=== PATIENT | male | born 1980 | race Caucasian/White ===

== ENCOUNTER → 2016-12-27 | Outpatient (CLI) | payer BC ==
[~2016-12-27] MED LIST: ASTN; ATV/1 PO; LORA-741 PO; MULT-506 PO
--- NOTE | 2016-12-27 09:36 | DIAGNOSTIC IMAGING REPORT ---
FUSION CT SINUSES W/O HISTORY: J32.9 Chronic sinusitis PATIENT IS STATUS POST BILATERAL MAXILLAR TECHNIQUE: Multiaxial CT images of the sinuses were performed and reformatted in the coronal plane without contrast. Fusion CT sinus protocol was also obtained. COMPARISON STUDY: Sinus CT 07/29/2016. FINDINGS: Mild mucosal thickening within the floor of the right frontal sinus and right frontoethmoidal recess. The left frontal sinus and sphenoid sinuses are clear. Partial opacification of the right ethmoid air cells. Small left-sided faiza bullosa. Asymmetric enlargement within the right inferior turbinate posteriorly. This slightly extends into the choana and measures 1.9 cm in thickness. This raises the possibility of a polyp. There may be a few small additional polyps along the bilateral inferior nasal turbinates. Moderate mucosal thickening within the right maxillary sinus and mild mucosal thickening within the left maxillary sinus. This has progressed. The mastoid air cells are clear. Left nasal septal deviation. There are bilateral maxillary antrostomies with partial middle turbinectomies. No fluid levels within the paranasal sinuses. Partially pneumatized anterior clinoids. The lamina papyracea and overall floors are intact. The visualized brain parenchyma and orbits are unremarkable. IMPRESSION: 1. Progression of the mild to moderate mucosal thickening within the paranasal sinuses consistent with a chronic sinusitis. No fluid levels identified. 2. Asymmetric nodular enlargement of the right inferior nasal turbinate posteriorly. This measures 1.9 cm in thickness. This could represent a polyp. Direct visualization is recommended. 3. Postoperative changes as described above. 4. Left nasal septal deviation. Electronically signed by: Nasir Chowdary M.D. 12/27/2016 9:33 AM Dictated Date/Time: 12/27/2016 9:26 AM
== END | disposition home or self-care (01) ==
LOC: C.CTS 08:54
DX: J32.9 Chronic sinusitis, unspecified (principal); J34.2 Deviated nasal septum

== ENCOUNTER → 2017-01-27 | Outpatient (CLI) | payer BC ==
[~2017-01-27] MED LIST changes: -LORA-741 PO
[2017-01-27 14:26] LABS: BASO % 0.4 %; BASO ABS # 0.02 K/uL (0-0.2); COMPLETE YES; EOS % 5.4 %; HEMATOCRIT 47.4 % (42-52); IG% 0.4 %; LYMPH % 33.5 %; LYMPH ABS # 1.81 K/uL (1.2-3.4); MEAN CELL VOLUME 88.1 fL (80-100); MEAN CORPUSCULAR HEMOGLOBIN 31.4 pg (25-34); MEAN CORPUSCULAR HGB CONC 35.7 g/dl (32-36); MEAN PLATELET VOLUME 10.1 fL (7.4-10.4); MONO % 8.3 %; PLATELET COUNT 203 K/uL (130-400); RED BLOOD COUNT 5.38 M/uL (4.7-6.1); WHITE BLOOD COUNT 5.41 K/uL (4.8-10.8)
[2017-01-27 14:32] LABS: INR 0.9 (0.9-1.1); PROTHROMBIN TIME (PATIENT) 10.1 SECONDS (9.0-12.0)
[2017-01-27 15:13] LABS: POTASSIUM 3.8 mmol/L (3.5-5.1)
== END | disposition home or self-care (01) ==
LOC: C.LAB 13:12
DX: Z01.818 Encounter for other preprocedural examination (principal)

== ENCOUNTER → 2017-02-07 | Day surgery (SDC) | payer BC ==
[2017-01-22 14:07] VITALS: Ht 182.9 cm; Wt 79.5 kg
[~2017-02-07] VITALS: Ht 182.9 cm; Wt 79.5 kg
[~2017-02-07] MED LIST changes: +ATROPINE SULFATE 0.1 MG/ML 5ML SYR IV PRN; +CEFAZOLIN 2000 MG/60 ML D5W IV SCH; +DEXAMETHASONE SOD INJ 4 MG/ML VIAL ONE; +EpINEphrine INJ 1MG/ML AMP 1 MG/ML AMP ONE; +FENTANYL CITRATE INJ 50 MCG/1 ML 2 ML VIAL IV PRN; +FENTANYL CITRATE INJ 50 MCG/1 ML 2 ML VIAL ONE; +HYDROCODONE/ACETAMOPHEN 5/325MG TAB PO PRN; +LABETALOL HCL IV 5 MG/ML 20ML IV PRN; +LACTATED RINGER'S 1000ML 1,000 ML IV SCH; +LIDOCAINE 4% MPF SOAK 5 ML = 1 DOSE TOP ONE; +LIDOCAINE HCL 2% 2 ML VIAL (20MG/ML) ONE; +LIDOCAINE/EPINEPHRINE 1% INJ 50 ML VIAL ONE; +MIDAZOLAM HCL 1 MG/ML 2ML VIAL ONE; +ONDANSETRON INJ 2 MG/ML 2 ML VIAL IV PRN; +ONDANSETRON INJ 2 MG/ML 2 ML VIAL ONE; +OXYMETAZOLINE HCL 0.05% NA SPR 15 ML BTL PRN; +OXYMETAZOLINE HCL 0.05% NA SPR 15 ML BTL SCH; +PROPOFOL IV EMULSION 10 MG/ML 20 ML VIAL IV ONE; +SUCCINYLCHOLINE CHLORIDE 20 MG/ML 10 ML VIAL IV ONE
--- NOTE | 2017-02-07 12:50 | History & Physical Bridge - [place] ---
H&P Re-Evaluation Bridge Note: I have examined the patient, reviewed the History & Physical and in the interval since the performance of the History & Physical I have noted the following changes of clinical significance: No changes noted
--- NOTE | 2017-02-07 13:20 | [facility] Operative Report ---
Operative Report Operative Date Feb 07, 2017. Pre-Operative Diagnosis Right Nasal Polyp Post-Operative Diagnosis Same Procedure(s) Performed Right Endoscopic Sinus Surgery Wtih Right Polypectomy Surgeon Dr. Oliva Patient Placement Coordinator Surgeon(s) None Estimated Blood Loss 2ML Findings LARGE POLYPOID MASS EMANATING FROM THE POSTERIOR ASPECT OF THE RIGHT INFERIOR TURBINATE Specimens A.) Right Nasal Polyp I attest to the content of the Intraoperative Record and any orders documented therein. Any exceptions are noted below.
--- NOTE | 2017-02-07 13:23 | Discharge Instructions ---
Discharge Instructions Date of Service Feb 07, 2017. Admission Reason for Admission: Nasal Polyps Discharge Discharge Diagnosis / Problem: SAME Discharge Goals Goal(s): Therapeutic intervention Activity Recommendations Activity Limitations: as noted below NO NOSE BLOWING FOR 2 WEEKS; LIGHT ACTIVITY FOR 2 WEEKS; NO DRIVING WHILE ON NORCO . Current Hospital Diet Patient's current hospital diet: Discharge Diet Recommended Diet: Regular Diet Procedures Procedures Performed: Right Endoscopic Sinus Surgery Wtih Right Polypectomy Pending Studies Studies pending at discharge: no Medical Emergencies . Who to Call and When: Medical Emergencies: If at any time you feel your situation is an emergency, please call 911 immediately. . Non-Emergent Contact Non-Emergency issues call your: Surgeon . . "Provider Documentation" section prepared by Roly Oliva. . VTE Core Measure Inpt VTE Proph given/why not?: SCD's
[2017-02-07 14:11] VITALS: TEMP 36.6
--- NOTE | 2017-02-07 14:22 | Anesthesia Progress Nt - [facility] ---
Anesthesia Post Op Note Date & Time Feb 07, 2017 at 14:22 Vital Signs Pain Intensity: 0 Vital Signs Past 12 Hours Date Time Temp Pulse Resp B/P (MAP) Pulse Ox O2 Delivery O2 Flow Rate FiO2 02/07/17 14:03 36.6 66 18 129/85 97 Room Air 02/07/17 14:01 129/85 02/07/17 14:00 71 16 97 02/07/17 14:00 71 16 02/07/17 13:56 139/87 02/07/17 13:55 69 16 02/07/17 13:55 71 16 97 02/07/17 13:51 123/94 02/07/17 13:50 75 13 02/07/17 13:50 75 13 99 02/07/17 13:46 114/84 02/07/17 13:45 76 19 02/07/17 13:45 76 19 99 02/07/17 13:41 106/77 02/07/17 13:40 36.9 74 12 106/77 98 Humidified Oxygen 6 02/07/17 11:17 36.7 77 20 115/77 (90) 97 Room Air Notes Mental Status: alert / awake / arousable, participated in evaluation Pt Amnestic to Procedure: Yes Nausea / Vomiting: adequately controlled Pain: adequately controlled Airway Patency, RR, SpO2: stable & adequate BP & HR: stable & adequate Hydration State: stable & adequate Anesthetic Complications: no major complications apparent
[2017-02-07 14:35] VITALS: BP 131/85; PULSE 64; O2SAT 100
--- NOTE | 2017-02-07 19:48 | OPERATIVE REPORT ---
DATE OF OPERATION: 02/07/2017 PREOPERATIVE DIAGNOSIS: Right nasal polyp. POSTOPERATIVE DIAGNOSIS: Right nasal polyp. PROCEDURE: Endoscopic right nasal polypectomy. SURGEON: Roly Oliva MD ANESTHESIA: General endotracheal. ESTIMATED BLOOD LOSS: 2 mL. FINDINGS: 1. Large polyp emanating from the posterior aspect of the right inferior turbinate causing obstruction of the choana on the right hand side and nasopharynx. SPECIMENS: None. COMPLICATIONS: None. INDICATIONS FOR THE PROCEDURE: The patient is a very pleasant 36-year-old male who recently underwent bilateral endoscopic sinus surgery, septoplasty, and bilateral inferior turbinate reduction, who several months after surgery complained of continued/recurrent right nasal airway obstruction. A CT scan of the sinuses showed some abnormalities, but most significant of which was a likely polyp emanating from the posterior aspect of the right inferior turbinate and completely obstructing the right choana and nasopharynx with polypoid tissue. He presents for the above-mentioned procedure on an outpatient elective basis. DESCRIPTION OF PROCEDURE: After informed consent had been obtained from the patient, the patient was wheeled to the operating room and placed on the operating table in a supine position. Monitors were placed. After induction of general endotracheal anesthesia, the patient was prepped in usual fashion for endoscopic sinus surgery. Lidocaine and epinephrine pledgets were placed into the right nasal cavity and pressure applied. After allowing adequate time for vasoconstriction and decongestion, the pledgets were removed and 3 mL of 1% lidocaine with 1:100,000 epinephrine was used to inject the right inferior turbinate posteriorly where there was a large polypoid mass emanating from the posterior aspect of it. After allowing adequate time for vasoconstriction, powered instrumentation was used to remove the polyp in its entirety, which resulted in a much larger nasal airway on the right hand side posteriorly. Photodocumentation was taken prior to the endoscopic polypectomy and afterwards. This marked the end of the case. The patient tolerated the procedure well. There were no apparent complications. The patient was extubated and transferred to recovery room in stable condition. I attest to the content of the Intraoperative Record and any orders documented therein. Any exception s are noted below.
== END | disposition home or self-care (01) ==
LOC: X.SURG 11:01
DX: J33.9 Nasal polyp, unspecified (principal); Z87.01 Personal history of pneumonia (recurrent); Z87.891 Personal history of nicotine dependence; Z82.49 Family history of ischemic heart disease and other diseases of the circulatory system